=== PATIENT | female | born 1935 | race Caucasian/White ===

== ENCOUNTER 2019-05-12 06:31 | Day surgery (SDC) | payer MEDICARE ==
[~2019-05-12] VITALS: Ht 167.6 cm; Wt 49.9 kg
[~2019-05-12 06:31] MED LIST: ASCORBIC ACID500 MG PO; CO Q-1030 MG PO; MAGNESIUM OXID250 MG PO; OYST-CAL-5001 TAB PO
[2019-05-12 07:00] LABS: BASOPHILS 0.4 % (0-2); EOSINOPHILS 2.7 % (0-7); HEMATOCRIT 40.1 % (36.0-48.0); HEMOGLOBIN 13.3 g/dL (12-16); MCH 30.4 pg (26.0-34.0); MCHC 33.2 g/dL (31.0-37.0); MCV 91.8 fL (80.0-100.0); MEAN PLATELET VOLUME 10.3 fL (7.4-10.4); MONOCYTES 10.4 % (2-11); NEUTROPHILS 62.5 % (40-80); PLATELET COUNT 213 10x3/uL (130-400); RBC 4.37 10x6/uL (4.00-5.40); RDW 14.1 % (11.5-14.5); WBC 5.1 10x3/uL (4.8-10.8)
[2019-05-12 07:13] LABS: ANION GAP 11.7 mmol/L (8-16); CALCIUM 9.5 mg/dL (8.5-10.1); POTASSIUM - SERUM 3.7 mmol/L (3.5-5.1)
[2019-05-12 07:58] VITALS: BP 118/57; Ht 167.6 cm; Wt 49.9 kg
[2019-05-12] MEDS ORDERED: HYDROCODON-ACE1 EA10 PO (10:07)
--- NOTE | 2019-05-12 16:49 | NUR ---
1530 PT VOIDED 1545 IV REMOVED 1600 PT DISCHARGED HOME IN W/C
--- NOTE | 2019-05-14 07:51 | OP ---
PATIENT NAME: RAFAEL MOORE MEDICAL RECORD: [id number] :37 LOCATION:D.OPS ADMISSION DATE: SURGEON: DAWIT BARNETT MD DATE OF OPERATION: 05/12/2019 PREOPERATIVE DIAGNOSIS: Hemorrhoidal skin tags. POSTOPERATIVE DIAGNOSES: 1. Hemorrhoidal skin tags. 2. Internal hemorrhoids. PROCEDURE: 1. Anal exam under anesthesia with right anterior hemorrhoidectomy. 2. Left lateral internal hemorrhoid banding. SURGEON: Dawit Barnett MD REPORT OF PROCEDURE: The patient was placed in lithotomy position and the perianal region was prepped and draped in sterile fashion. Using a Neymar-Ramires anoscope, we did a 360-degree inspection of the anus. Immediately, we could see there was some redundant anal tissue consistent with skin tags. The largest of these was on the right anterior aspect. As we looked down, there was also an associated large internal hemorrhoid present. The patient had a left lateral internal hemorrhoid of moderate size and a smaller right posterior internal hemorrhoid. We elected to perform a hemorrhoidectomy with removal of the skin tag on the right anterior aspect. To do this, 2-0 chromic was placed at the base of the hemorrhoidal tissue in the distal rectum and tied down tightly. We then used electrocautery to excise the hemorrhoid starting at the anoderm and extending down through the dentate line and the proximal rectum. Care was taken to assure that we did not injure the patient's sphincteric muscles, which were easily visualized with the inclusion of removal of the hemorrhoid. There was some bleeding from the hemorrhoidal tissue and this was treated with electrocautery. We then used the previously placed suture to run a locking stitch out over the distal rectum and anoderm closing up the tissues. We then irrigated out the wound thoroughly with normal saline and assured there was no sign of any bleeding. We then approached the left lateral internal hemorrhoid and placed a hemorrhoidal band over the tissue. There was a good collection of tissue present within the band at the conclusion of the case. At this point, we inspected the right posterior hemorrhoidal tissue. It was small and did not appear to need any further treatment. At this point, the anoscope was removed and a piece of Gelfoam dipped in [place] was placed into the distal rectum. COMPLICATIONS: None. CONDITION: Stable. ANESTHESIA: General endotracheal. BLOOD LOSS: Minimal. TRANSINT:[id number] Voice Confirmation ID: [id number] DOCUMENT ID: [id number] OPERATIVE REPORT [id number] RAFAEL MOORE CHRISTIAN MD at 0751 CC: MICHAEL GARCIA MD [id number] DICTATION DATE: 05/12/19 1012 WANT AD RECEIVER: 05/12/[address] [facility] [place] 05/12/[address] [id number]
== END 2019-05-12 16:00 | disposition home or self-care (01) ==
LOC: D.OPS 06:31 → D.PAN 08:45 → D.OPS 08:45 → D.PAN 09:00 → D.OPS 16:00
PROVIDERS: ATTEND Surgery
DX: K64.4 Residual hemorrhoidal skin tags (principal); K64.8 Other hemorrhoids; Z01.812 Encounter for preprocedural laboratory examination